=== PATIENT | male | born 1955 | race American Indian/Alaskan Native ===

== ENCOUNTER 2017-12-28 08:01 | Observation (INO) | payer OTHER ==
[2017-12-28] MEDS ORDERED: ECOTRIN PO ONE (08:28)
[2017-12-28 08:53] LABS: Basophils # (Auto) 0.1 K/mm3 (0.0-0.1); Basophils % (Auto) 1.3 % (0.0-1.8); Eosinophils # (Auto) 0.3 K/mm3 (0.0-0.4); Hematocrit 38.9 % (35.5-45.6); Hemoglobin 12.8 gm/dl (11.8-15.2); Lymphocytes # (Auto) 2.4 K/mm3 (1.2-5.4); Lymphocytes % (Auto) 28.7 % (13.4-35.0); Mean Corpuscular HGB Conc 33 % (32-34); Mean Corpuscular Hemoglobin 32 pg (28-32); Mean Corpuscular Volume 97 fl (84-94); Monocytes # (Auto) 1.1 K/mm3 (0.0-0.8); Monocytes % (Auto) 12.8 % (0.0-7.3); Platelet Count 268 K/mm3 (140-440); Red Cell Distribution Width 12.6 % (13.2-15.2)
[2017-12-28] MEDS ORDERED: NACL 0.9% 500 ML 500 ML IV SCH (09:00)
[2017-12-28 09:10] LABS: BUN/Creatinine Ratio 17; Blood Urea Nitrogen 19 mg/dL (9-20); Calcium 9.2 mg/dL (8.4-10.2); Hemolysis Index 8
[2017-12-28] MEDS ORDERED: PLAVIX ONE (09:27)
[2017-12-28 09:40] LABS: INR 0.87 (0.87-1.13)
[2017-12-28] MEDS ORDERED: PLAVIX PO ONE (10:00)
[2017-12-28] MEDS ORDERED: VERSED ONE (10:08)
[2017-12-28] MEDS ORDERED: HEPARIN/NS 5000 UNIT/500ML(CATH LAB) 1,000 ML IR ONE (10:08)
[2017-12-28] MEDS ORDERED: SUBLIMAZE ONE (10:08)
[2017-12-28] MEDS ORDERED: XYLOCAINE 2% INFILTRATI ONE ×2 (10:09→10:33)
[2017-12-28] MEDS ORDERED: NITROGLYCERIN SYRINGE 3 ML ONE (10:09)
[2017-12-28] MEDS: CALAN ONE ×3 (10:48→19:04)
[2017-12-28] MEDS: HEPARIN 10,000 UNITS/10 ML ONE ×3 (10:50→11:15)
[2017-12-28] MEDS: PLAVIX ONE ×3 (11:10→14:19)
[2017-12-28] MEDS ORDERED: NEO SYNEPHRINE/NS Syringe(OR USE) IV ONE (11:15)
[2017-12-28] MEDS ORDERED: HEPARIN 10,000 UNITS/10 ML ONE (11:27)
--- NOTE | 2017-12-28 11:45 | Cardiac Catherization Report ---
CARDIAC CATHETERIZATION AND CORONARY ANGIOPLASTY REPORT REASON FOR PROCEDURE: A 62-year-old man with unstable angina pectoris. Angina symptoms persist despite maximal antianginal therapy. She was recommended for a cardiac catheterization. PROCEDURE: The patient was prepped and draped in a sterile fashion after informed consent. The right radial cath site was prepped and draped after a negative Nhan's test. The right radial artery was entered using Seldinger technique followed by placement of a 6-Comoran hydrophilic sheath. Routine radial cocktail was administered via the sheath. Selective left and right coronary angiography was performed using a #3.5 left Sebastian and a #4 right Sebastian catheter. The right Sebastian was used for left ventricle angiography. The angiograms were reviewed. CORONARY ANGIOGRAPHY: The left main coronary artery was free of significant disease. The left anterior descending artery and its diagonal branches contained mild diffuse irregularities. The circumflex system was a small caliber system that contained diffuse mild to moderate atherosclerosis. The mid obtuse marginal branch was notable for a focal, 80% stenosis of its mid section. The right coronary artery was also a small caliber, but dominant vessel. This vessel contained diffuse mild atherosclerosis, with moderate disease of the small caliber posterior descending branch. Left ventricular systolic function was normal to hyperdynamic, ejection fraction greater than 65%. CORONARY ANGIOPLASTY: After review of the angiograms, ad hoc coronary angioplasty of the mid obtuse marginal branch was recommended. We selected a number 3.0 XB guiding catheter and advanced to the left coronary ostium. A 0.014 inch Flexible Shaft Winder 50 guidewire was directed into the obtuse marginal across the lesional segment. Predilatation balloon angioplasty was then performed using a 2.5 mm balloon catheter. Following balloon angioplasty, a 2.5 x 12 mm Resolute drug-eluting stent was deployed across the lesional segment. Following stent deployment, another 2.5 mm noncompliant balloon was then used to maximally dilate the lesional segment. Following post-dilatation, there was an excellent angiographic result, DANO 3 flow was maintained through the vessel and there were no complications. The procedure was well tolerated by the patient. The catheters and the wires were removed, sheath removed, and hemostasis achieved using manual compression. The patient was returned to the postprocedure unit in stable condition. CONCLUSION: 1. Multivessel atherosclerosis, with severe focal disease of the mid obtuse marginal branch of the circumflex artery. 2. Successful angioplasty and stenting of the mid obtuse marginal, with deployment of a 2.5 mm drug-eluting stent. 3. Normal to hyperdynamic left ventricular systolic function, ejection fraction greater than 65%. [facility]# [id number] BRITNI/NTS
[2017-12-28] MEDS ORDERED: ZOFRAN IV PRN (12:15)
[2017-12-28] MEDS ORDERED: ULTRAM PO PRN (12:15)
[2017-12-28] MEDS ORDERED: AMBIEN PO PRN (12:15)
--- NOTE | 2017-12-28 12:22 | Event Note ---
Date: 12/28/17 Patient underwent an outpatient cardiac catheterization that revealed an 80% stenosis of the mid obtuse marginal branch. A 2.5 mm drug-eluting stent was implanted with excellent angiographic result. Admit for 23 hour post PCI observation, anticipated discharge tomorrow morning. On discharge, the patient will be maintained on aspirin and Plavix, in addition to routine anti-ischemic medical therapy including nitrates, beta gary and statin. Metformin will be held for 48 hours post contrast angiography.
[2017-12-28] MEDS ORDERED: NACL 0.9% 1000 ML 1,000 ML IV SCH (13:00)
[2017-12-28] MEDS: LOPRESSOR PO SCH ×2 (13:07→22:15)
[2017-12-28] MEDS: IMDUR PO SCH ×2 (13:25→22:14)
[2017-12-28] MEDS: HumuLIN R SUB-Q SCH ×2 (21:55→22:14)
[2017-12-29] MEDS: LOPRESSOR PO SCH ×2 (05:40→13:00)
[2017-12-29 07:09] LABS: Basophils # (Auto) 0.1 K/mm3 (0.0-0.1); Basophils % (Auto) 1.3 % (0.0-1.8); Eosinophils # (Auto) 0.3 K/mm3 (0.0-0.4); Eosinophils % (Auto) 4.4 % (0.0-4.3); Hematocrit 36.5 % (35.5-45.6); Hemoglobin 12.3 gm/dl (11.8-15.2); Lymphocytes % (Auto) 32.8 % (13.4-35.0); Mean Corpuscular HGB Conc 34 % (32-34); Mean Corpuscular Hemoglobin 33 pg (28-32); Mean Corpuscular Volume 97 fl (84-94); Monocytes # (Auto) 0.7 K/mm3 (0.0-0.8); Monocytes % (Auto) 11.9 % (0.0-7.3); Platelet Count 244 K/mm3 (140-440); Red Blood Count 3.79 M/mm3 (3.65-5.03); Red Cell Distribution Width 12.6 % (13.2-15.2)
[2017-12-29 07:31] LABS: Creatine Kinase MB 4.5 ng/mL (0.0-4.0)
[2017-12-29 07:32] LABS: BUN/Creatinine Ratio 15; Blood Urea Nitrogen 15 mg/dL (9-20); Calcium 8.5 mg/dL (8.4-10.2); Hemolysis Index 5
[2017-12-29 07:43] LABS: Chol/HDL Ratio 3.29 %; HDL Cholesterol 51 mg/dL (40-59); LDL Cholesterol,Direct 105 mg/dL (50-130)
--- NOTE | 2017-12-29 08:10 | XRay Report ---
AP CHEST: HISTORY: Post PCI AP view of the chest demonstrates a normal mediastinal and cardiac contour with clear lungs and normal bony and soft tissue structures. IMPRESSION: Unremarkable AP chest.
[2017-12-29] MEDS: HumuLIN R SUB-Q SCH ×2 (08:42→13:44)
--- NOTE | 2017-12-29 09:15 | Short Stay Summary ---
Short Stay Documentation Date of service: 12/29/17 - History H&P: obtained from office - Allergies and Medications Current Medications: Allergies No Known Allergies Allergy (Verified 09/11/14 12:18) Home Medications Medication Instructions Recorded Confirmed Last Taken Type Aspirin EC 325 mg PO DAILY #30 09/09/17 12/28/17 12/28/17 09:22 Rx Atorvastatin [Lipitor] 40 mg PO QDAY #30 tablet 09/09/17 12/28/17 12/27/17 Rx 40mg Sitagliptin Phos/Metformin HCl 500 each PO BID #30 tablet 09/09/17 12/28/1710/15 Rx [Janumet 50-500 mg Tablet] 1 tab amLODIPine [Norvasc] 5 mg PO QDAY #30 tablet 09/09/17 12/28/17 12/27/17 Rx 5mg Cyclobenzaprine [Flexeril 10 MG 10 mg PO TID PRN 12/28/17 12/28/17 12/22/17 History TAB] 10mg Empagliflozin [Jardiance] 10 mg PO DAILY 12/28/17 12/28/17 12/27/17 History 10mg ISOSORBIDE MONOnitrate [Imdur ER] 30 mg PO BID 12/28/17 12/28/17 12/27/17 History 30mg Plavix 75 mg PO DAILY 12/28/17 12/28/17 12/28/17 09:30 History 75mg Active Medications Aspirin (Ecotrin) 325 mg PO QDAY [facility] Atorvastatin Calcium (Lipitor) 40 mg PO QDAY [facility] Clopidogrel Bisulfate (Plavix) 75 mg PO QDAY [facility] Insulin Human Regular (Humulin R) 0 units SUB-Q [facility]; Protocol Last Admin: 12/28/17 22:14 Dose: 3 units Isosorbide Mononitrate (Imdur) 30 mg PO BID [facility] Last Admin: 12/28/17 22:14 Dose: 30 mg Metoprolol Tartrate (Lopressor) 25 mg PO Q8H [facility] Last Admin: 12/29/17 05:40 Dose: 25 mg Ondansetron HCl (Zofran) 4 mg IV Q8H PRN PRN Reason: N/V unrelieved by Reglan Tramadol HCl (Ultram) 50 mg PO Q4H PRN PRN Reason: Pain, Mild (1-3) Zolpidem Tartrate (Ambien) 5 mg PO QHS PRN PRN Reason: Sleep - Physical exam General appearance: no acute distress HEENT: PERRLA Lungs: Clear to auscultation Heart: Regular rate, Normal S1, Normal S2 - Brief post op/procedure progress note Procedure: Patient underwent an outpatient cardiac catheterization that revealed an 80% stenosis of the mid obtuse marginal branch. A 2.5 mm drug-eluting stent was implanted with excellent angiographic result. Condition: stable - Hospital course Hospital course: Stable overnight observation. - Disposition Condition at discharge: Good Disposition: [id number] TO HOME OR SELFCARE Short Stay Discharge Plan Activity: advance as tolerated Weight Bearing Status: Full Weight Bearing Diet: low fat, low cholesterol, low salt, diabetic Special Instructions: no heavy lifting (for 72hrs) Additional Instructions: On discharge, the patient will be maintained on aspirin and Plavix, in addition to routine anti-ischemic medical therapy including nitrates, beta gary and statin. Metformin will be held for 48 hours post cardiac cath. Follow up with: QING GREEN MD [Primary Care Provider] - 7 Days MACARIO HUYNH MD [Staff Physician] - 7 Days Prescriptions: Metoprolol [Lopressor TAB] 25 mg PO BID #60 tablet
[2017-12-29] MEDS ORDERED: ECOTRIN PO SCH (10:00)
[2017-12-29] MEDS ORDERED: PLAVIX PO SCH (10:00)
[2017-12-29] MEDS ORDERED: NON-FORMULARY (Plavix 75 MG) PO SCH (10:00)
[2017-12-29] MEDS ORDERED: ASPIRIN 325 MG PO SCH (10:00)
[2017-12-29] MEDS: IMDUR PO SCH (11:15)
[2017-12-29 12:30] VITALS: BP 115/67
== END 2017-12-29 15:10 | disposition home or self-care (01) ==
LOC: CATHLABREC 08:01 → 4A 12:15
PROVIDERS: ADMIT Internal Medicine Cardiovascular Disease; ATTEND Internal Medicine Cardiovascular Disease
DX: I25.119 Atherosclerotic heart disease of native coronary artery with unspecified angina pectoris (principal)
CPT/HCPCS: 36415; 71045; 80048; 80061; 82550; 82553; 82962; 84484; 85025; 85347; 85610; 85730; 93005; 93010; 93458; 96372; A9270; C1725; C1769; C1874; C1887; C1894; C9600; G0378; J1644; J2250; J2370; J3010; J7030; J7040; 92928; J1815; Q9967